=== PATIENT | female | born 1935 | race African-American/Black ===

== ENCOUNTER → 2018-01-19 | Outpatient (CLI) | payer MEDICARE, OTHER ==
[~2018-01-19] MED LIST: ADALAT20 MG PO; ASPIR-LOW81 MG ORAL; ASPIRIN325 MG PO; ATIVAN0.5 MG ORAL; BENADRYL25 M2 PO; COUMADIN5 MG ORAL; LIPITOR10 MG ORAL; LIPITOR10 MG PO; METOPROLOL TAR100 MG ORAL; MYRBETRIQ25 MG ORAL; PREDNISONE10 M2 PO; PROCARDIA XL60 MG ORAL; VICODIN 5-5001 EACH ORAL; WARFARIN SODIUM4 MG ORAL
[2018-01-19 11:53] LABS: BLOOD UREA NITROGEN 19 mg/dL (7-18); CREATININE 1.7 MG/DL (0.55-1.30)
--- NOTE | 2018-01-19 14:30 | Diagnostic Imaging Report ---
Indication: Liver cysts Technique: Continuous helical transaxial imaging of the abdomen was obtained from the lung bases to the iliac crests. No IV contrast given. Coronal 2-D reformats were also obtained. Study obtained in a Siemens sensation [address] Automatic Exposure Control was utilized. Intravenous contrast could not be given as the patient has high BUN/creatinine. Total Dose length Product (DLP): 508.[address] Dose Index Volume (CTDIvol): 14.12 mGy Comparison: None Findings: There is a single hypodensity in the left lobe of the liver 1 cm in size nonspecific in nature. Given the presence of chronic renal disease suggest obtaining either ultrasound or MRI. Either study would be sufficient for diagnosis. The lung bases are clear. Cardiomegaly is present. Aorta is mildly calcified. Suggestion of a left renal cyst projecting posteriorly. There is incidental thickening of the wall the antral portion of the stomach. Consider EGD for further evaluation. IMPRESSION: Nonspecific 1 cm hypodensity in the left lobe of the liver. This could be cystic but evaluation on the current study is limited as no intravenous contrast could be given due to renal insufficiency. Suggest ultrasound correlation or MRI Incidental thickening of the wall the antral portion of the stomach. Suggest endoscopy for further evaluation Atherosclerotic disease Diverticulosis of the colon. Suggestion of a left renal cyst measuring 2.[address] scanner at [facility] is accredited by the [employer] and the scans are performed using dose optimization techniques as appropriate to a performed exam including Automatic Exposure control.
== END | disposition home or self-care (01) ==
LOC: CAT 10:53
DX: K76.89 Other specified diseases of liver (principal); I70.90 Unspecified atherosclerosis; K57.30 Diverticulosis of large intestine without perforation or abscess without bleeding; I51.7 Cardiomegaly
CPT/HCPCS: 36415; 74150; 82565; 84520